=== PATIENT | male | born 1980 | race Caucasian/White ===

== ENCOUNTER 2016-12-23 08:20 | Emergency (ER) | payer MEDICAID ==
[~2016-12-23] VITALS: Ht 167.6 cm; Wt 79.8 kg
[2016-12-23 10:10] VITALS: BP 130/84
== END 2016-12-23 10:10 | disposition home or self-care (01) ==
LOC: ED 08:20
DX: S49.92XA Unspecified injury of left shoulder and upper arm, initial encounter (principal); E78.00 Pure hypercholesterolemia, unspecified; X58.XXXA Exposure to other specified factors, initial encounter; Y93.89 Activity, other specified; Y99.8 Other external cause status; Y92.89 Other specified places as the place of occurrence of the external cause

== ENCOUNTER 2018-01-31 12:20 | Emergency (ER) | payer MEDICAID ==
[~2018-01-31] VITALS: Ht 170.2 cm; Wt 80.3 kg
[2018-01-31 12:25] VITALS: BP 138/76
== END 2018-01-31 13:29 | disposition home or self-care (01) ==
LOC: ED 12:20
DX: B34.9 Viral infection, unspecified (principal); E78.00 Pure hypercholesterolemia, unspecified
CPT/HCPCS: J1885